=== PATIENT | female | born 1955 | race African-American/Black ===

== ENCOUNTER 2019-07-28 12:13 | Emergency (ER) | payer MEDICARE ==
[~2019-07-28] VITALS: Ht 165.1 cm; Wt 60.0 kg
[2019-07-28] MEDS ORDERED: DEXTROSE 50% WATER 50ML SYRINGE IV ONE ×2 (14:15→14:17)
[2019-07-28 16:31] LABS: BASOPHILS % 0.8 % (0.0-2.0); EOSINOPHILS % 3.1 % (0.0-5.0); HEMATOCRIT. 30.2 % (36.0-48.0); HEMOGLOBIN. 9.9 g/dL (12.0-16.0); MEAN CORPUSCULAR HEMOGLOBIN 27.2 pg (28.0-32.0); MEAN CORPUSCULAR VOLUME 83.2 fL (81.0-99.0); MEAN PLATELET VOLUME 8.2 fl (7.4-10.4); MONOCYTES % 7.4 % (2.0-8.0); NEUTROPHILS % 74.7 % (40.0-76.0); PLATELET 258 x1000/uL (130-400); RED BLOOD CELL COUNT 3.64 mill/uL (4.2-5.4)
[2019-07-28 16:37] LABS: CHLORIDE 107 mEq/L (98-107)
[2019-07-28 16:44] LABS: AMYLASE 66 IU/L (25-115); CREATINE KINASE 80 IU/L (26-192)
[2019-07-28 16:48] LABS: CREATINE KINASE MB FRACTION 1.9 ng/mL (0.5-3.6)
[2019-07-28 18:26] VITALS: BP 158/86
== END 2019-07-28 18:26 | disposition home or self-care (01) ==
LOC: ER 12:50
DX: E10.649 Type 1 diabetes mellitus with hypoglycemia without coma (principal); G93.41 Metabolic encephalopathy; I10 Essential (primary) hypertension; Z79.4 Long term (current) use of insulin
CPT/HCPCS: 36415; 80053; 82150; 82550; 82553; 82962; 84484; 85025; 93005; 96374; 99284